=== PATIENT | female | born 1985 | race Two or more races ===

== ENCOUNTER 2024-04-08 19:22 | Emergency (ER) | payer SELFPAY ==
[~2024-04-08] VITALS: Ht 160 cm; Wt 73.2 kg
[2024-04-08] MEDS: ACETAMINOPHEN 500 MG TAB PO ONE (20:07)
[2024-04-08] MEDS ORDERED: cefTRIAXone SOD 1,000 MG VL IM ONE (20:30)
[2024-04-08 20:42] LABS: COVID19 ANTIGEN SOFIA FIA NEGATIVE (NEGATIVE); Rapid Influenza B Negative (Negative)
[2024-04-08 20:49] LABS: Rapid Influenza A Positive (Negative)
--- NOTE | 2024-04-08 20:53 | DVH ---
XY CHEST TWO VIEWS ROUTINE CLINICAL HISTORY: cough sob COMPARISON: None TECHNIQUE: Frontal and lateral view of the chest was obtained FINDINGS: Lines and Tubes: None Lungs: No focal consolidation. Pleura: No effusion. No pneumothorax. Cardiomediastinal contours: Unremarkable Bones: No acute osseous abnormality. IMPRESSION: No acute cardiopulmonary disease.
[2024-04-08] MEDS: DexAMETHasone SOD PHOS 10MG/1ML VIAL INJ IM ONE (20:58)
[2024-04-08 21:07] VITALS: BP 152/94; PULSE 129; RESP 18; O2SAT 95
[2024-04-08] MEDS: IBUPROFEN 800 MG TAB PO ONE (21:14)
[2024-04-08] MEDS: SODIUM CHLORIDE 0.9% 1,000 ML IV ONE (21:26)
--- NOTE | 2024-04-08 21:30 | ED.PDOC ---
Eye-HPI HPI Comments This is a 39-year-old female presents to the ED chief complaint flu-like s ymptoms x2 weeks. Patient reports fevers, chills, body aches, shortness of breath, and fatigue. She notes has been taking [id number] medications with little relief she states she just feels weak. Denies chest pain, difficulty breathing, abdominal pain, diarrhea. Reports no recent travel. 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 Chief Complaint: Flu like Time Seen by MD: 19:26 Reviewed Notes: Nurses Notes, Medications, Allergies Allergies: Coded Allergies: NO KNOWN ALLERGIES (Unverified , 04/08/24) Home Meds Active Scripts Oseltamivir Phosphate (Tamiflu) 75 Mg Cap, 1 CAP PO BID for 5 Days, #10 CAP Prov:HERMINIO KUHN [employer] 04/08/24 Mode of Arrival: Ambulatory Past Medical History PAST MEDICAL HISTORY: Denies Surgical History: Denies all surgeries BREWERY TECHNICIAN History: No Pertinent BREWERY TECHNICIAN History Family History Family History: Reviewed,noncontributory to illness Social History Smoker: Non-Smoker Alcohol: Denies ETOH Use Drugs: Denies Drug Use Constitutional: reports: chills, fatigue, fever, weakness; denies: diaphoresis, malaise, sweats, others EENTM: reports: nasal discharge, throat pain; denies: blurred vision, double vision, ear bleeding, ear discharge, ear drainage, ear pain, ear ringing, eye pain, eye redness, hearing loss, mouth pain, mouth swelling, nose bleeding, nose congestion, nose pain, photophobia, tearing, throat swelling, voice changes, others Respiratory: reports: cough, shortness of breath; denies: hemoptysis, orthopnea, SOB at rest, SOB with excertion, stridor, wheezing, others Cardiovascular: denies: chest pain, dizzy spells, diaphoresis, Dyspnea on exertion, edema, irregular heart beat, left arm pain, lightheadedness, palpitations, PND, syncope, others Gastrointestinal: denies: abdomen distended, abdominal pain, blood streaked bowels, constipated, diarrhea, dysphagia, difficulty swallowing, hematemesis, melena, nausea, poor appetite, poor fluid intake, rectal bleeding, rectal pain, vomiting, others Genitourinary: denies: abnormal vagina bleeding, burning, dyspareunia, dysuria, flank pain, frequency, hematuria, incontinence, pain, , vagina discharge, urgency, others Neurological: denies: dizziness, fainting, headache, left sided numbness, left sided weakness, numbness, paresthesia, pre-existing deficit, right sided numbness, right sided weakness, seizure, speech problems, tingling, tremors, weakness, others Musculoskeletal: denies: back pain, gout, joint pain, joint swelling, muscle pain, muscle stiffness, neck pain, others Integumetry: denies: bruises, change in color, change in hair/nails, dryness, laceration, lesions, lumps, rash, wounds, others Allergic/Immunocompromised: denies: Difficulty Healing, Frequent Infections, Hives, Itching, others Hematologic/Lymphatic: denies: anemia, blood clots, easy bleeding, easy bruising, swollen glands, others Endocrine: denies: excessive hunger, excessive sweating, excessive thirst, excessive urination, flushing, intolerance to cold, intolerance to heat, unexplained weight gain, unexplained weight loss, others Psychiatric: denies: anxiety, bipolar disorder, depression, hopeless, panic disorder, schizophrenia, sleepless, suicidal, others Physical Exam General Appearance: No Apparent Distress, Normal HEENT: Pharyngeal Erythema, TMs Normal Neck: Full Range of Motion, Non-Tender Respiratory: Lungs Clear, No Accessory Muscle Use, No Respiratory Distress, Normal Breath Sounds Cardiovascular: No Edema, No JVD, No Murmur, No Gallop, Normal Peripheral Pulses, Regular Rate/Rhythm Breast Exam: Deferred Gastrointestinal: No Organomegaly, Non Tender, No Pulsatile Mass, Normal Bowel Sounds, Soft Genitalia: Deferred Pelvic: Deferred Rectal: Deferred Extremities: Normal capillary refill, Normal inspection, Normal range of motion, Non-tender, No pedal edema Musculoskeletal : Apperance: Normal Neurologic: Alert, cabbage salter II-XII nml as Tested, No Motor Deficits, Normal Affect, Normal Mood, No Sensory Deficits Cerebellar Function: Normal Reflexes: Normal Skin: Dry, Normal Color, Warm Lymphatic: No Adenopathy Was a procedure done? Was a procedure done?: No EENT DIFF Eye: N/A Sore Throat: Viral Pharyngitis X-Ray, Labs, Meds, VS Vital Signs Date Time Temp Pulse Resp B/P (MAP) Pulse Ox O2 Delivery O2 Flow Rate FiO2 04/08/24 22:14 98.6 04/08/24 21:14 100.6 04/08/24 21:07 100.6 129 18 152/94 (113) 95 100.6 04/08/24 21:07 129 18 95 Room Air 04/08/24 21:06 100.6 04/08/24 20:07 100.7 04/08/24 19:50 Room Air 0 04/08/24 19:41 100.7 134 18 167/95 (119) 99 Lab Test 04/08/24 20:18 Range/Units Influenza Type A Antigen Positive Negative Influenza Type B Antigen Negative Negative SARS-CoV-2 Antigen (Rapid) Negative NEGATIVE Current Medications Medications (Trade) Dose Ordered Sig/Carlene Route Start Time Stop Time Status Last Admin Acetaminophen (Tylenol Tablet) 500 mg ONCE ONCE PO 04/08/24 20:00 04/08/24 20:01 DC 04/08/24 20:07 Dexamethasone Sodium Phosphate (Decadron Injection) 10 mg ONCE ONCE IM 04/08/24 20:30 04/08/24 20:31 DC 04/08/24 20:58 Sodium Chloride 1,000 ml @ 1,000 mls/hr Q1H ONCE IV 04/08/24 21:15 04/08/24 22:14 DC 04/08/24 21:26 Ibuprofen (Motrin Tablet) 800 mg ONCE ONCE PO 04/08/24 21:15 04/08/24 21:16 DC 04/08/24 21:14 X-Ray, Labs, Meds, VS Comment Influenza a swab positive. Patient still remains tachycardic and febrile after Tylenol. Patient given Motrin 800 mg IV fluids started. After ibuprofen and IV fluids patient top rate normalized temperature 99.1. Patient requesting discharge at this time. Script Tamiflu twice daily x5 days. Advised [id number] Tylenol and Motrin for pain and fever per labeled dosing instructions. Advised to rest increase p.o. fluids with electrolytes. Note provided for work advised no work while with fever. ER return precautions given. Patient indicated understanding agrees with discharge plan of care. Time of 1ST Reevaluation: 22:37 Reevaluation 1ST: Improved Patient Education/Counseling: Diagnosis, Treatment, Prognosis, Need For Follow Up Family Education/Counseling: No Family Present Departure 1 Departure Time of Disposition: 22:20 Impression: Primary Impression: Influenza A Disposition: 01 HOME / SELF CARE / HOMELESS Condition: Stable e-Prescriptions Oseltamivir Phosphate (Tamiflu) 75 Mg Cap 1 CAP PO BID for 5 Days, #10 CAP Prov: HERMINIO KUHN 04/08/24 Discharged With: Self Critical Care Note Critical Care Time?: No Stability Stability form required: No HERMINIO KUHN Apr 08, 2024 21:30
[2024-04-08 22:14] VITALS: TEMP 98.6
[2024-04-08] MEDS ORDERED: TAMIFLU PO (22:21)
== END 2024-04-08 22:34 | disposition home or self-care (01) ==
LOC: ER 19:22 → EEVIPCON 19:22 → ER 22:33
DX: J10.1 Influenza due to other identified influenza virus with other respiratory manifestations (principal); Z79.899 Other long term (current) drug therapy; Z20.822 Contact with and (suspected) exposure to COVID-19
CPT/HCPCS: 36415; 71046; 87426; 87804; 96360; 96372; 99284; J1100; J7030